=== PATIENT | female | born 1985 | race Caucasian/White ===

== ENCOUNTER → 2018-12-15 | Outpatient (CLI) | payer BC ==
[~2018-12-15] MED LIST: MOTRIN 600600 MG/TAB PO; NO HOME MEDICATIONS; PRENATAL1 TA2 PO; ZOFRAN 8MG8 MG PO
== END ==
LOC: MC.RAD 08:15
DX: N63.21 Unspecified lump in the left breast, upper outer quadrant (principal)

== ENCOUNTER 2019-03-31 01:51 | Emergency (ER) | payer BC ==
[~2019-03-31] VITALS: Ht 165.1 cm; Wt 54.5 kg
[2019-03-31 01:52] VITALS: TEMP 97.2
[2019-03-31 02:08] LABS: BASO # 0.1 (0.0-0.2); BASO % 0.9 % (0.0-2.0); EOS # 0.3 (0.0-0.7); EOS % 4.6 % (0-4.0); GRAN # 4.4 (1.4-6.5); GRAN % 62.8 % (42.2-75.2); HEMATOCRIT 39.4 % (37.0-47.0); HEMOGLOBIN 12.9 g/dl (12.5-16.0); LYMPH # 1.7 (1.2-3.4); LYMPH % 24.4 % (20.0-51.0); MEAN CELL VOLUME 86 fl (80.0-100.0); MEAN CORPUSCULAR HEMOGLOBIN 28 pg (27.0-31.0); MEAN CORPUSCULAR HGB CONC 33 g/dl (33.0-37.0); MEAN PLATELET VOLUME 9.2 fl (7.4-10.4); MONO # 0.5 (0.1-0.6); PLATELET COUNT 207 K/mm3 (130-400); RED BLOOD COUNT 4.56 M/mm3 (4.10-5.30); REDCELL DISTRIBUTION WIDTH-CV 13.7 % (11.5-14.5)
[2019-03-31 02:17] LABS: INR 0.9 (0.8-3.0); PROTHROMBIN TIME 10.4 SECONDS (9.7-12.8)
[2019-03-31 02:20] LABS: ALANINE AMINOTRANSFERASE 16 U/L (9-52); ALKALINE PHOSPHATASE 56 U/L (50-136); ANION GAP 7 mmol/L (7-16); AST,SGOT 20 U/L (15-37); BILIRUBIN,TOTAL 0.6 mg/dL (0.0-1.0); BLOOD UREA NITROGEN 16 mg/dL (7-17); CALCIUM 9.6 mg/dL (8.4-10.2); CARBON DIOXIDE 22 mmol/L (22-30); CHLORIDE 109 mmol/L (98-107); GLUCOSE 95 mg/dL (74-106); POTASSIUM 3.8 mmol/L (3.4-5.0); SODIUM 138 mmol/L (137-145); TOTAL PROTEIN 6.6 gm/dL (6.4-8.2)
[2019-03-31 02:30] LABS: D-DIMER < 200.00 ng/mLDDu (200-230)
[2019-03-31 02:35] LABS: TROPONIN-I < 0.012 ng/mL (0.000-0.035)
[2019-03-31] MEDS ORDERED: PEPCID 20MG TAB20 MG PO (06:29)
[2019-03-31 06:45] VITALS: BP 102/80; PULSE 84
== END 2019-03-31 07:06 | disposition home or self-care (01) ==
LOC: COL.ER 01:51
PROVIDERS: Emergency Medicine
DX: R07.89 Other chest pain (principal)
CPT/HCPCS: J2270; J2405; J3010; Q9967

== ENCOUNTER 2022-04-20 17:52 | Emergency (ER) | payer BC ==
[~2022-04-20] VITALS: Ht 162.6 cm; Wt 59.1 kg
[~2022-04-20 17:52] MED LIST changes: +PEPCID 20MG TAB20 MG PO
[2022-04-20 18:05] VITALS: BP 129/86; TEMP 98.4
[2022-04-20 18:28] LABS: COLLECTION METHOD CLEAN CATCH
[2022-04-20 18:33] LABS: BASO # 0.1 K/mm3 (0.0-0.2); EOS # 0.2 K/mm3 (0.0-0.7); EOS % 1.9 % (0.0-4.0); GRAN # 5.8 K/mm3 (1.4-6.5); GRAN % 70.2 % (42.2-75.2); HEMATOCRIT 43.6 % (37.0-47.0); HEMOGLOBIN 14.3 g/dl (12.5-16.0); LYMPH # 1.8 K/mm3 (1.2-3.4); LYMPH % 21.4 % (20.0-51.0); MEAN CELL VOLUME 87 fl (80.0-100.0); MEAN CORPUSCULAR HEMOGLOBIN 28 pg (27-31); MEAN CORPUSCULAR HGB CONC 33 g/dl (33.0-37.0); MONO # 0.4 K/mm3 (0.1-0.6); MONO % 5.3 % (1.7-9.3); PLATELET COUNT 297 K/mm3 (130-400); RED BLOOD COUNT 5.04 M/mm3 (4.10-5.30)
[2022-04-20 18:34] LABS: MUCOUS Present (NOT PRESENT); PH 6 (5-8); URINE APPEARANCE Clear (CLEAR/HAZY); URINE BACTERIA None Seen /hpf (NONE SEEN); URINE BILIRUBIN Negative (NEGATIVE); URINE BLOOD 1+ (NEGATIVE); URINE COLOR Yellow (YELLOW); URINE GLUCOSE Negative (NEGATIVE); URINE KETONE Negative (NEGATIVE); URINE LEUKOCYTE ESTERASE Negative (NEGATIVE); URINE NITRATE Negative (NEGATIVE); URINE PROTEIN(semi-quant) Negative (NEGATIVE); URINE RBC 0-2 /hpf (0-2); URINE UROBILINOGEN Negative (NEGATIVE)
[2022-04-20 19:02] LABS: ALBUMIN 4.3 gm/dL (3.5-5.0); BILIRUBIN,TOTAL 0.7 mg/dL (0.2-1.2); C-REACTIVE PROTEIN 0.08 mg/dL (0.00-0.50)
[2022-04-20 19:13] LABS: CREATININE, serum 0.83 mg/dL (0.57-1.11)
[2022-04-20 22:42] VITALS: PULSE 88
== END 2022-04-20 22:43 | disposition home or self-care (01) ==
LOC: COL.ER 17:52
PROVIDERS: Nurse Practitioner
DX: K52.9 Noninfective gastroenteritis and colitis, unspecified (principal); N28.1 Cyst of kidney, acquired; Z32.02 Encounter for pregnancy test, result negative
CPT/HCPCS: J1885; J7030; Q9967

== ENCOUNTER → 2024-05-30 | Outpatient (CLI) | payer BC ==
[~2024-05-30] MED LIST changes: +CEPHALEXIN500 M1 PO; +LYSTEDA650 MG PO; +PERCOCET 325 MG1 TA2 PO
== END ==
LOC: MC.RAD 16:56
DX: Z12.31 Encounter for screening mammogram for malignant neoplasm of breast (principal); N63.20 Unspecified lump in the left breast, unspecified quadrant

== ENCOUNTER → 2024-06-08 | Outpatient (CLI) | payer BC | LOC: MC.RAD 12:59 | DX: N60.12 Diffuse cystic mastopathy of left breast (principal) ==